=== PATIENT | female | born 1960 | race Caucasian/White ===

== ENCOUNTER → 2016-11-17 | Day surgery (SDC) | payer OTHER ==
[~2016-11-17] MED LIST: ALBU0.63 NEB; ALPR1TAB6 PO; ASPI81TA50 PO; FORM20VI IH; IV RINGERS,LACTATED 1000ML 1,000 ML IV SCH; LIDOCAINE 2% PF Vial for OR 5 ML VIAL. ONE; PROAIR HFA8.5 GM INH; PROP150T2 PO; PROPOFOL 20 ML IV ONE; TIOT18CA IH; ZOLP5TAB5 PO
[2016-11-17 14:20] VITALS: BP 150/69
== END | disposition home or self-care (01) ==
LOC: ENDOS 12:00 → MERGE 13:00
PROVIDERS: ATTEND Internal Medicine Gastroenterology
DX: Z12.11 Encounter for screening for malignant neoplasm of colon (principal); K64.0 First degree hemorrhoids; J45.909 Unspecified asthma, uncomplicated; J44.9 Chronic obstructive pulmonary disease, unspecified; I25.10 Atherosclerotic heart disease of native coronary artery without angina pectoris; F17.200 Nicotine dependence, unspecified, uncomplicated; F41.9 Anxiety disorder, unspecified; Z83.3 Family history of diabetes mellitus; Z82.49 Family history of ischemic heart disease and other diseases of the circulatory system; Z72.89 Other problems related to lifestyle; Z98.51 Tubal ligation status; Z88.3 Allergy status to other anti-infective agents
CPT/HCPCS: 45378; J2704